=== PATIENT | male | born 1955 | race African-American/Black ===

== ENCOUNTER 2024-08-01 07:16 | Emergency (ER) | payer MEDICARE ==
[~2024-08-01] VITALS: Ht 177.8 cm; Wt 91.2 kg
[~2024-08-01 07:16] MED LIST: LOSARTAN POTAS100 MG PO
[2024-08-01 07:33] VITALS: PULSE 67; RESP 16; TEMP 97.8; O2SAT 99
== END 2024-08-01 09:00 | disposition home or self-care (01) ==
LOC: ER 07:27
DX: R79.81 Abnormal blood-gas level (principal)
CPT/HCPCS: 99283

== ENCOUNTER → 2024-08-29 | Day surgery (SDC) | payer MEDICARE ==
[2024-08-26 10:00] LABS: BASOPHILS % 0.1 % (0.0-1.0); EOSINOPHILS # (AUTO) 0.2 (0.0-0.4); EOSINOPHILS % 2.4 % (0.0-6.0); HEMATOCRIT 46.9 % (38.2-49.6); HEMOGLOBIN 15.6 g/dL (14.0-18.0); LYMPHOCYTES # (AUTO) 3.3 (1.0-3.2); LYMPHOCYTES % 41.9 % (18.0-39.1); MEAN CORPUSCULAR HEMOGLOBIN 27.7 pg (28-32); MEAN CORPUSCULAR HGB CONC 33.3 g/dL (31-35); MEAN CORPUSCULAR VOLUME 83.3 fL (81-99); MONOCYTES # (AUTO) 0.6 (0.2-0.8); MONOCYTES % 7.8 % (4.4-11.3); NEUTROPHILS # (AUTO) 3.8 (2.1-6.9); NEUTROPHILS % 47.5 % (38.7-80.0); PLATELET COUNT 356 x10e3/uL (140-360); RED BLOOD COUNT 5.63 x10e6/uL (4.3-5.7); RED CELL DISTRIBUTION WIDTH 16.3 % (11.7-14.4); WHITE BLOOD COUNT 7.92 x10e3/uL (4.8-10.8)
[~2024-08-29] MED LIST changes: +ACETAMINOPHEN 1000 MG/100 ML 100 ML IV ONE; +ACETAMINOPHEN 1000 MG/100 ML IV PRN; +ALBUTEROL/IPRATROPIUM 3 ML NEB NEB ONE; +ALBUTEROL/IPRATROPIUM 3 ML NEB ONE; +ASPIRIN 325 MG TAB PO SCH; +ASPIRIN81 MG PO; +CELECOXIB 100 MG CAP PO SCH; +DIPHENHYDRAMINE HCL INJ 50 MG/ML VIAL IV PRN; +DOCUSATE SODIUM 100 MG CAP PO PRN; +FENTANYL CITRATE/PF 100MCG/2 ML INJ ONE; +HYDROCODONE/APAP 5MG-325MG TAB PO PRN; +HYDROCODONE/APAP 7.5MG-325MG 1 EA TAB PO PRN; +LIDOCAINE HCL 2% LOCAL INJ 5 ML SDV VIAL INJ ONE; +ONDANSETRON HCL INJ 2MG/ML 2ML 2 MG/ML VIAL IV PRN; +ONDANSETRON HCL INJ 2MG/ML 2ML 2 MG/ML VIAL ONE; +PROPOFOL IV EMULSION 10 MG/ML 20 ML VIAL ONE; +ROPIVACAINE/EPI/CLONIDINE/KET 50 ML SYRINGE INJ ONE; +SEVOFLURANE INHAL SOLN 250 ML PEN BTL ONE; +SODIUM CHLORIDE 0.9% 1000ML 1,000 ML IV SCH
[2024-08-29] MEDS: GABAPENTIN 300 MG CAP ONE (09:50)
[2024-08-29] MEDS: CEFAZOLIN SODIUM 2 GM ONE (09:50)
[2024-08-29] MEDS: DEXAMETHASONE SOD PHOS 10 MG/1 ML VIAL ONE (09:50)
[2024-08-29] MEDS: CELECOXIB 200 MG CAP ONE (09:50)
[2024-08-29] MEDS: LACTATED RINGER'S 1,000 ML ONE (09:51)
[2024-08-29] MEDS: MEPERIDINE HCL INJ 25 MG/ML VIAL ONE (13:40)
[2024-08-29 14:10] VITALS: TEMP 97.8
[2024-08-29 16:00] VITALS: BP 147/99; PULSE 94; RESP 16; O2SAT 98
== END | disposition home health service (06) ==
LOC: OR 08:45
PROVIDERS: ATTEND Specialist
DX: M17.11 Unilateral primary osteoarthritis, right knee (principal); M25.761 Osteophyte, right knee; I10 Essential (primary) hypertension; B19.20 Unspecified viral hepatitis C without hepatic coma; K21.9 Gastro-esophageal reflux disease without esophagitis; F17.200 Nicotine dependence, unspecified, uncomplicated; Z01.812 Encounter for preprocedural laboratory examination; Z79.82 Long term (current) use of aspirin; Z79.899 Other long term (current) drug therapy
CPT/HCPCS: 27447; 36415; 73560; 85025; 86850; 86900; 97110; 97116 ×2; 97161; C1713 ×2; C1776 ×4; J0131; J1100; J2003; J2175; J2405; J2704; J3010; J7121